=== PATIENT | male | born 1995 | race Asian ===

== ENCOUNTER 2018-06-30 20:23 | Emergency (ER) | payer OTHER ==
[~2018-06-30] VITALS: Ht 172.7 cm; Wt 60.0 kg
[2018-06-30 20:29] VITALS: BP 109/73
== END 2018-06-30 22:23 | disposition home or self-care (01) ==
LOC: ED 21:04
DX: S93.402A Sprain of unspecified ligament of left ankle, initial encounter (principal); X50.1XXA Overexertion from prolonged static or awkward postures, initial encounter; Y93.89 Activity, other specified; Y92.009 Unspecified place in unspecified non-institutional (private) residence as the place of occurrence of the external cause; Y99.8 Other external cause status
CPT/HCPCS: 99284

== ENCOUNTER 2018-11-05 01:17 | Emergency (ER) | payer OTHER ==
[~2018-11-05] VITALS: Ht 177.8 cm; Wt 68.6 kg
[2018-11-05] MEDS ORDERED: ISOT40CA PO (01:24)
[2018-11-05 02:39] VITALS: BP 110/74
== END 2018-11-05 02:41 | disposition home or self-care (01) ==
LOC: ED 02:01
DX: R05 Cough (principal); F17.200 Nicotine dependence, unspecified, uncomplicated
CPT/HCPCS: 71046; 99283